=== PATIENT | female | born 1930 | race Caucasian/White ===

== ENCOUNTER 2019-11-25 12:01 | Emergency (ER) | payer MEDICARE, OTHER ==
[2019-11-25 12:17] VITALS: BP 138/89; PULSE 85
--- NOTE | 2019-11-25 12:27 | EDM.PDOC ---
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 She states she struck a metal plate on a gate with her proximal left tib-fib. She is barely able to weight-bear i.e. she is heel walking with aid since injury. She denies any other injuries. Of note she is not taking any anticoagulants. Onset: Sudden Onset Date: 11/24/19 Onset Time: 15:30 Duration: Hour(s):, Getting Worse Location: Reports: Lower Extremity, Left (Follow-up with blunt trauma to the proximal) Quality: Reports: Ache ( anterior tib-fib.), Throbbing Severity: Moderate (7 out of 10) Improves with: Reports: Rest Worsens with: Reports: Other (Worse with trying to weight-bear or flex even at the knee.) Context: Reports: Trauma (Fall with blunt trauma to the). Denies: Activity, Exercise, Lifting, Sick Contact Associated Symptoms: Reports: No Other Symptoms ( proximal left tib-fib) Treatments [employer]PER[employer] N[employer]ESSING: Reports: NSAIDS Left Lower Leg Pain Score (Numeric/FACES): 10 - Related Data Allergies Allergy/AdvReac Type Severity Reaction Status Date / Time No Known Allergies Allergy Verified 11/25/19 12:16 Home Meds: Home Meds Losartan [Cozaar] 50 mg PO DAILY 07/17/14 [History] amLODIPine Besylate [Amlodipine Besylate] 2.5 mg PO DAILY 07/17/14 [History] Cyanocobalamin (Vitamin B-12) [Vitamin B-12] 3,000 mcg PO DAILY 05/08/19 [ History] Ibuprofen 400 mg PO Q6H PRN 05/08/19 [History] Past Medical History HEENT History: Reports: Other (See Below) Other HEENT History: hearing loss Cardiovascular History: Reports: Hypertension Respiratory History: Reports: None Gastrointestinal History: Reports: Diverticulosis Genitourinary History: Reports: None 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: Musculoskeletal History: Reports: Back Pain, Chronic, Osteoporosis Other Musculoskeletal History: compression fracture Neurological History: Reports: Other (See Below) Other Neuro History: cognitive decline Psychiatric History: Reports: None Endocrine/Metabolic History: Reports: Osteoporosis Hematologic History: Reports: None Immunologic History: Reports: None Oncologic (Cancer) History: Reports: Basal Cell Carcinoma Dermatologic History: Reports: Other (See Below) Other Dermatologic History: basal jud carcinoma - Past Surgical History Head Surgeries/Procedures: Reports: None HEENT Surgical History: Reports: Cataract Surgery Cardiovascular Surgical History: Reports: None Respiratory Surgical History: Reports: None GI Surgical History: Reports: Colonoscopy, EGD Female Surgical History: Reports: Hysterectomy Endocrine Surgical History: Reports: None Oncologic Surgical History: Reports: None Social & Family History - Family History Family Medical History: Noncontributory - Caffeine Use Caffeine Use: Reports: Tea - Living Situation & Occupation Living situation: Reports: , Alone Occupation: Retired Review of Systems - Review of Systems Review Of Systems: See Below Constitutional: Reports: No Symptoms Eyes: Reports: Glasses Ears: Reports: No Symptoms Nose: Reports: No Symptoms Mouth/Throat: Reports: No Symptoms Respiratory: Reports: No Symptoms Cardiovascular: Reports: Other (Hypertension) GI/Abdominal: Reports: Decreased Appetite Genitourinary: Reports: Incontinence (Both urge and stress components) Musculoskeletal: Reports: Neck Pain, Shoulder Pain, Back Pain, Leg Pain ( Currently left leg pain from fall yesterday), Joint Pain (Knees and hips.) Skin: Reports: Bruising (Ecchymoses left lower extremity) Neurological: Reports: No Symptoms Psychiatric: Reports: No Symptoms ED EXAM, GENERAL - Physical Exam Exam: See Below Exam Limited By: No Limitations General Appearance: Alert, WD/WN, No Apparent Distress, Other (Temperature is 36.2. Heart rate 85 respiratory 18 O2 sats 93% room air BP 138/89) Eye Exam: Bilateral Eye: Normal Inspection, PERRL Peripheral Pulses: 1+: Posterior Tibial (L), Posterior Tibial (R), Dorsalis Pedis (L), Dorsalis Pedis (R) Extremities: Other (Examination of the right lower extremity shows no injuries. She has some degenerative arthritic change at the knee. On the left side the knee is warm to palpation. But there is no traumatic effusion of the true knee joint. She does have diffuse joint line tenderness particularly medial lateral anteriorly. She has ecchymosis over the inferior portion of the patella. Patella tracking is normal. She has marked ecchymoses of the proximal one third of her anterior tibia. Point tenderness over the tibial tuberosity. Occultly flexing the knee more than about 35 degrees due to pain.) Neurological: Alert, Oriented, CN II-XII Intact, Normal Cognition Psychiatric: Normal Affect, Normal Mood Skin Exam: Warm, Dry, Intact, Ecchymosis (Left anterior proximal tibia as described in history of present illness) Course - Vital Signs Last Recorded V/S: Last Vital Signs Temp 36.2 C 11/25/19 12:13 Pulse 85 11/25/19 12:13 Resp 18 11/25/19 12:13 BP 138/89 11/25/19 12:13 Pulse Ox 93 L 11/25/19 12:13 - Orders/Labs/Meds Orders: Active Orders 24 hr Category Date Time Status Knee wo Cont Lt [CT] Stat Exams 11/25/19 12:59 Taken DME for Discharge [COMM] Stat Oth 11/25/19 14:56 Ordered - Radiology Interpretation Free Text/Narrative:: 89-year-old female presents to the ED for evaluation of blunt force trauma to the left anterior leg that she experienced yesterday from a fall on a metal plate. She has diffuse ecchymoses of the inferior portion of the patella and proximal one third of the tibia. Tenderness is worse over the inferior patellar bursa and over the tibial tuberosity. Plan x-ray of the tib-fib to be done. - Re-Assessments/Exams Free Text/Narrative Re-Assessment/Exam: 11/25/19 12:41: Rays of the left tibia reveal an undisplaced fracture through the lateral accessory of the proximal tibia with possible extension superiorly into the knee joint. This fracture is only visible on 1 film out of 2.'s are extremely osteopenic. Plan I am going to CT her knee to make sure there is no extension into the true knee joint. 11/25/19 14:09 T scan of the knee has been completed. There is a moderate sized knee effusion. There is a subtle cortical fracture of the tibial tubercle with a vertical and horizontal component affecting the anterior cortex. There is mild comminution in this area. There is subcutaneous edema contusion seen at the level of the knee and proximal calf anteriorly. Patient has proximal anterior tibial fracture with mild comminution. Patient will therefore be placed in a hinged brace locked at 0 degrees. She will be tippy toe walking with the aid of a walker. She does not want any pain medication. She feels she will do okay with Motrin and/or Tylenol or both. We will follow- up with Dr. Baker orthopedic surgeon in about 10 days time I will have her call the clinic tomorrow morning to arrange an appointment 11/25/19 14:59 at present we are unable to find a hinged lockable knee brace for this patient. [employer] does not carry this type of brace that you can lock. Apparently none are available in the purchasing department. Therefore the patient will be placed in a long-leg knee immobilizer without any hinge. She will be toe walking with a walker. Departure - Departure Time of Disposition: 14:11 Disposition: Home, Self-Care 01 Condition: Fair Clinical Impression: Fracture of proximal end of left tibia Qualifiers: Encounter type: initial encounter Fracture type: closed Fracture morphology: other fracture Qualified Code(s): S82.192A - Other fracture of upper end of left tibia, initial encounter for closed fracture Contusion of left lower leg Qualifiers: Encounter type: initial encounter Qualified Code(s): S80.12XA - Contusion of left lower leg, initial encounter - Discharge Information *PRESCRIPTION DRUG MONITORING PROGRAM REVIEWED*: Not Applicable *COPY OF PRESCRIPTION DRUG MONITORING REPORT IN PATIENT MAKAYLA: Not Applicable Instructions: Tibial Fracture, Adult, [id number] Referrals: Bre Marie MD [Primary Care Provider] - Forms: ED Department Discharge Additional Instructions: Evaluation in the emergency room today in regards to injuries sustained from a fall yesterday at home. Injury to the left lower extremity when your knee and upper tibia came in contact with a metal plate. X-rays revealed a fracture of the proximal tibia and CT confirms that it does extend slightly up into the joint but there is no significant displacement of the fractures. Therefore surgery is not required at this time. These fractures take probably close to 12 weeks to heal. Since it is a weightbearing bone you can only get around on your tippy toes or heel on the left side with the aid of a walker and a brace on your leg. You will need follow-up with orthopedic surgeon in 7 to 10 days. Please phone his office tomorrow morning at [phone] to arrange an appointment. Elevate the left leg as much as possible for the next 2 days to help with the swelling. If you can tolerate ice pack across the knee then it should be used 1/2-hour out of every 4 hours until tomorrow afternoon. After this she may apply heat to the area which will help blood in the tissues liquefy and be reabsorbed. Motrin 200 mg tablet 1 or 2 every 6 hours necessary for pain relief. May also use Tylenol 650 mg every 4 hours for pain if needed. Sepsis Event Note - Evaluation Sepsis Screening Result: No Definite Risk - Focused Exam Vital Signs: Vital Signs Temp Pulse Resp BP Pulse Ox 11/25/19 12:13 36.2 C 85 18 138/89 93 L Date Exam was Performed: 11/25/19 Time Exam was Performed: 14:59 - My Orders Last 24 Hours: My Active Orders 11/25/19 12:59 Knee wo Cont Lt [CT] Stat 11/25/19 14:56 DME for Discharge [COMM] Stat - Assessment/Plan Last 24 Hours: My Active Orders 11/25/19 12:59 Knee wo Cont Lt [CT] Stat 11/25/19 14:56 DME for Discharge [COMM] Stat
--- NOTE | 2019-11-25 12:52 | CR ---
Left tibia and fibula: 2 views of the left tibia and fibula were obtained. Comparison: No prior study. Fracture appears to be present within the proximal tibia. Alignment is anatomic. There may be slight extension into the tibial spine area. No additional fracture or other abnormality is appreciated. Impression: 1. Proximal tibial fracture. This may have articular extension into the tibial spines. No displacement is seen. Diagnostic code #3 This report was dictated in MDT
--- NOTE | 2019-11-26 08:27 | CT ---
CT left knee Technique: Multiple axial sections were obtained through the left knee. Reconstructed coronal and sagittal images were obtained. Findings: Fracture is noted within the anterior proximal tibia. This involves mostly the cortex with no extension into the tibial spines as suggested on plain film study. There is mild medial joint space narrowing noted. Bony structures are also osteoporotic. No additional fracture is seen. Soft tissue swelling is identified. Small joint effusion is seen. Impression: 1. Nondisplaced anterior proximal tibial fracture mostly involving the cortex. No definite articular extension is seen. 2. Osteopenia and mild degenerative change. 3. Soft tissue swelling and small joint effusion. Diagnostic code #3 This report was dictated in MDT I agree with preliminary report from veto, finalized on 11/25/19, 2:40 PM Central Daylight Time [facility]
== END 2019-11-25 15:15 | disposition home or self-care (01) ==
LOC: JD.ED 12:01
DX: S82.102A Unspecified fracture of upper end of left tibia, initial encounter for closed fracture (principal); S80.12XA Contusion of left lower leg, initial encounter; I10 Essential (primary) hypertension; Z79.899 Other long term (current) drug therapy; W22.8XXA Striking against or struck by other objects, initial encounter
CPT/HCPCS: 73590-26-LT; 73590-LT; 73700-26-LT; 73700-LT; 99283; 99284-25